=== PATIENT | male | born 1960 | race Caucasian/White ===

== ENCOUNTER 2020-07-29 18:13 | Emergency (ER) | payer MEDICAID ==
[~2020-07-29] VITALS: Ht 188 cm; Wt 123.8 kg
[2020-07-29 18:32] VITALS: BP 167/95; Ht 188 cm; Wt 123.8 kg
== END 2020-07-29 20:26 | disposition home or self-care (01) ==
LOC: ED 18:13
DX: L40.59 Other psoriatic arthropathy (principal); J40 Bronchitis, not specified as acute or chronic
CPT/HCPCS: J1100; J1885; Q0162